=== PATIENT | male | born 1965 | race Caucasian/White ===

== ENCOUNTER 2019-10-14 06:14 | Day surgery (SDC) | payer MEDICAID ==
[~2019-10-14 06:14] MED LIST: Dextrose 5%-0.45% NaCl 1,000 ML IV SCH; Sodium Chloride 0.9% 10 ML Syringe FLUSH PRN
[2019-10-14] MEDS ORDERED: fentaNYL 100 MCG/2 ML SDV ONE ×2 (06:18→06:19)
[2019-10-14] MEDS ORDERED: Midazolam 1 MG/ML 2 ML SDV ONE (06:18)
[2019-10-14] MEDS ORDERED: fentaNYL 100 MCG/2 ML SDV IV ONE ×2 (07:13→07:14)
[2019-10-14] MEDS ORDERED: Midazolam 1 MG/ML 2 ML SDV IV ONE ×4 (07:14→07:23)
--- NOTE | 2019-10-14 14:02 | OR ---
DATE: 10/14/2019 PROCEDURE PERFORMED: Total colonoscopy. INSTRUMENT USED: [id number] Olympus video colonoscope. PREMEDICATIONS: Fentanyl 100 mcg intravenous, Versed 3.5 mg intravenous. The procedure was done under pulse oximetry, BP recording, and boring machine operator. INDICATION: Screening colonoscopic examination is done for detection of any polypoid lesions and removal, endoscopic hemostasis therapy if needed. DESCRIPTION OF PROCEDURE: Initial rectal exam was unremarkable. Rigid anoscopy showed small internal hemorrhoids without bleeding from them. The colonoscope was passed with ease up to the ileocecal area. Photographs were taken of normal- appearing cecum identified by landmarks of appendiceal orifice and double-bulged ileocecal folds. No bleeding was noted from any of the visualized areas at the commencement of the examination. The bowel preparation was adequate, [place] scale 2 in all areas. There was considerable amount of liquid fecal material that had to be aspirated. No stricture. No vascular ectasia. No large isolated ulcerations seen. No evidence of diffuse inflammatory bowel disease in the form of friability, contact bleeding, or ulcerations. No polyp or tumor mass identified. Probing the proximal sides of folds and flexures using adequate distention and clearing up the stool material, withdrawal of the scope was made, cecum to rectum time over 6 minutes. No bleeding was noted from any of the visualized areas at the completion of examination. IMPRESSION: Internal hemorrhoids. The patient tolerated the procedure well. [facility] /[id number]
== END 2019-10-14 09:40 | disposition home or self-care (01) ==
LOC: DL.ENDO 06:14
PROVIDERS: ATTEND Internal Medicine Gastroenterology
DX: Z12.11 Encounter for screening for malignant neoplasm of colon (principal); K64.8 Other hemorrhoids; E66.09 Other obesity due to excess calories; Z68.31 Body mass index [BMI] 31.0-31.9, adult
CPT/HCPCS: 45378; J2250; J3010; J7042; G0121